=== PATIENT | female | born 1965 | race Caucasian/White ===

== ENCOUNTER 2017-12-24 10:16 | Emergency (ER) | payer MEDICAID ==
[~2017-12-24] VITALS: Ht 162.6 cm; Wt 120.0 kg
[2017-12-24 10:19] VITALS: BP 135/84
== END 2017-12-24 13:59 | disposition left against medical advice (07) ==
LOC: ER 10:47
DX: F41.9 Anxiety disorder, unspecified (principal); Z53.21 Procedure and treatment not carried out due to patient leaving prior to being seen by health care provider